=== PATIENT | female | born 1985 | race Native Hawaiian/Other Pacific Islander ===

== ENCOUNTER 2019-06-29 11:02 | Outpatient (CLI) | payer OTHER | END 2019-06-29 19:51 | disposition home or self-care (01) | LOC: RAD 11:02 | DX: J40 Bronchitis, not specified as acute or chronic (principal) ==

== ENCOUNTER 2020-08-03 09:04 | Outpatient (CLI) | payer BC, OTHER | END 2020-08-03 23:26 | disposition home or self-care (01) | LOC: LAB 09:04 | DX: Z11.59 Encounter for screening for other viral diseases (principal); J40 Bronchitis, not specified as acute or chronic | CPT/HCPCS: 87635; G2023; U0003 ==